=== PATIENT | female | born 1950 | race Caucasian/White ===

== ENCOUNTER → 2019-09-25 | Outpatient (CLI) | payer MEDICARE, OTHER ==
[2019-09-25] VITALS (12 sets, daily range): BP systolic 137–174; BP diastolic 54–88; PULSE 95–112
[~2019-09-25] VITALS: Ht 162.6 cm; Wt 93.8 kg
[~2019-09-25] MED LIST: FISH OIL1000 MG PO; FLAXSEED OIL1000 MG PO; LIPITOR 10MG10 MG PO; PRINZIDE 12.5 M1 TAB PO; SYNTHROID0.1 MG/TAB PO; TOPROL XL100 MG PO
[2019-09-25 11:48] LABS: PROTHROMBIN TIME 11.6 SECONDS (9.7-12.8)
--- NOTE | 2019-09-25 12:45 | NUR ---
PT AMBULATED TO CT AND POSITIONED ON THE TABLE. MONITORING EQUIPMENT PLACED. IMAGES TAKEN AND SENT.
--- NOTE | 2019-09-25 13:01 | NUR ---
PT WAS GIVEN VERSED 1 MG AND FENTANYL 25 MCG SIVP
== END ==
LOC: COL.RAD 10:44
PROVIDERS: Internal Medicine
DX: K76.9 Liver disease, unspecified (principal); Z85.038 Personal history of other malignant neoplasm of large intestine
CPT/HCPCS: J2250; J3010